=== PATIENT | male | born 1985 | race African-American/Black ===

== ENCOUNTER 2019-08-17 18:52 | Emergency (ER) | payer MEDICAID | END 2019-08-17 19:50 | disposition left against medical advice (07) | LOC: ER 18:52 | DX: Z53.21 Procedure and treatment not carried out due to patient leaving prior to being seen by health care provider (principal) ==

== ENCOUNTER 2019-10-20 20:59 | Emergency (ER) | payer MEDICAID ==
[~2019-10-20] VITALS: Ht 180.3 cm; Wt 73.0 kg
[2019-10-20 21:09] VITALS: BP 151/88
== END 2019-10-21 02:29 | disposition left against medical advice (07) ==
LOC: ER 20:59
DX: Z53.21 Procedure and treatment not carried out due to patient leaving prior to being seen by health care provider (principal); F17.200 Nicotine dependence, unspecified, uncomplicated